=== PATIENT | female | born 1990 | race Hispanic/Latino ===

== ENCOUNTER 2018-02-19 09:59 | Outpatient (CLI) | payer BC ==
[2018-02-19] MEDS ORDERED: Iopamidol 300 61% 30 ML VIAL ONE (10:45)
[2018-02-19] MEDS ORDERED: Lidocaine 1% PF 10 ML AMP ONE (10:45)
[2018-02-19] MEDS ORDERED: Gadobenate Dimeglumine 529 MG/1 ML (20ML VIAL) ONE (10:45)
[2018-02-19] MEDS ORDERED: EPINEPHrine 1 MG/ML AMP ONE (10:45)
--- NOTE | 2018-02-19 15:31 | RAD ---
LEFT HIP ARTHROGRAM: HISTORY: A 27-year-old female with a history of tear of the left acetabular labrum. FLUOROSCOPY TIME: 1.1 minutes with a dose of 475.5 mGy*^m2 with 2 portable fluoroscopic spot images. Following informed consent, the left hip was prepped and draped in the usual sterile fashion. Local anesthesia was obtained with 1% Xylocaine. A 22-gauge spinal needle was introduced into the anterior left hip joint. Approximately 12 cc of Gadolinium and iodinated contrast media was injected. Spot films confirm intraarticular location. The patient tolerated the procedure well and was moved to MRI for post-arthrogram MRI to follow. IMPRESSION: Successful left hip arthrogram. POS: [facility]
--- NOTE | 2018-02-19 16:23 | MRI ---
LEFT HIP MRI POST ARTHROGRAM CONTRAST: HISTORY: A 27-year-old female with a history of left hip pain with concern for a tear of the left acetabular l abrum. FINDINGS: Multiplanar, multisequence MR examination of the left hip is performed. There is arthrographic contr ast media in the left hip joint. There is a focus of interosseous cystic change in the anterior acet abulum which appears to be adjacent to the anterior labrum. The interosseous cystic component measur es approximately 0.7 x 1.1 cm and may well be related to either an interosseous cystic ganglion versu s a paralabral cyst with interosseous extension. No significant abnormal marrow signal or marrow hans ma. No evidence of acute muscle or tendon injury. Visualized soft tissue pelvis appears unremarkabl e. IMPRESSION: Some interosseous cystic change involving the anterior acetabulum in a paralabral location, probably a paralabral cyst with some interosseous extension versus ganglion cyst. I favor this being in assoc iated with an anterior labral tear. Other findings as above. POS: [facility]
== END 2018-02-19 10:00 | disposition home or self-care (01) ==
LOC: RAD 09:59
PROVIDERS: ATTEND Family Medicine Sports Medicine
DX: S73.102A Unspecified sprain of left hip, initial encounter (principal)
CPT/HCPCS: 27093; A9579; J0171; J7050

== ENCOUNTER 2021-10-18 12:35 | Outpatient (CLI) | payer BC | END 2021-10-18 12:36 | disposition home or self-care (01) | LOC: SCSMRI 12:35 | PROVIDERS: ATTEND Physician Assistant | DX: E22.1 Hyperprolactinemia (principal); G93.89 Other specified disorders of brain | CPT/HCPCS: 70553 ==

== ENCOUNTER 2024-04-23 10:16 | Emergency (ER) | payer BC ==
[2024-04-23 11:06] LABS: #Basophils 0.08 10x3/uL (0.0-0.2); %Basophils 0.8 % (0.0-1.0); %Eosinophils 1.7 % (0.0-10.0); %Lymphocytes 23.1 % (21.0-51.0); %Monocytes 7.9 % (0.0-10.0); Hematocrit 37.9 % (36.0-47.0); Hemoglobin 12.6 g/dL (12.0-16.0); Mean Corpuscular HGB CONC 33.2 g/dL (32.0-36.0); Mean Corpuscular Hemoglobin 27.2 pg (27.0-31.0); Mean Corpuscular Volume 81.9 fL (78.0-98.0); Mean Platelet Volume 11.8 fL (7.4-10.4); Platelet Count 257 10x3/uL (130-400); Red Blood Cell (RBC) Count 4.63 mill/uL (4.20-5.40)
[2024-04-23 11:27] LABS: BHCG - Serum POSITIVE (NEGATIVE); Pregs Control Background? CLEAR/WHITE (CLR/WHITE); Pregs Control Bar Appear? YES (CONTROL BAR)
[2024-04-23 11:47] LABS: Bacteria/HPF None Seen HPF (None Seen); Bilirubin Negative (Negative); Blood, Urine Negative (Negative); CAUTI Indications for Culture Acute Hematuria; Clarity Clear (Clear); Glucose, Urine (Dipstick) Normal (Negative); Ketone, Urine Negative (Negative); Leukocyte Negative Leu/uL (Negative); Nitrite Negative (Negative); Protein, Urine (Dipstick) Negative (Neg-Trace); RBC/HPF 0-3 HPF (0-3); Specific Gravity, Urine 1.004 (1.002-1.036); Squamous Epithelial None Seen HPF (0-3); Urobilinogen Normal mg/dL (Less than 2); WBC/HPF 0-3 HPF (0-3); pH, Urine 5.5 (5.0-9.0)
[2024-04-23 11:49] LABS: Urine Culture Reflex No No
== END 2024-04-23 13:15 | disposition home or self-care (01) ==
LOC: ERS 10:16
DX: O20.0 Threatened abortion (principal); Z3A.08 8 weeks gestation of pregnancy
CPT/HCPCS: 36415; 76801; 81001; 84702; 84703; 85025; 86900; 86901